=== PATIENT | male | born 1990 | race Caucasian/White ===

== ENCOUNTER 2018-10-08 02:13 | Emergency (ER) | payer OTHER ==
[~2018-10-08] VITALS: Ht 172.7 cm; Wt 86.2 kg
[2018-10-08 02:23] VITALS: BP 115/77
[2018-10-08] MEDS ORDERED: Morgan Lens TOPIC ONE (02:45)
[2018-10-08] MEDS ORDERED: NS 250 ML IVPB ONE (02:45)
[2018-10-08] MEDS ORDERED: Tetracaine 0.5% Opth 4ml Soln LEFT EYE ONE (02:45)
[2018-10-08] MEDS ORDERED: OCUFLOX5 ML RIGHT EYE (03:44)
[2018-10-08 03:49] VITALS: BP 112/73
--- NOTE | 2018-10-08 04:27 | Emergency Room Report ---
History of Present Illness General Chief Complaint: Eye Problems Source: Patient Present Illness HPI 27-year-old male presents ED for evaluation. States that he feels like there is a piece a contact lens stuck in his left eye. States he slept with his contacts last night and when he tried to take it out he felt his contact lens rip. States he was able to remove three fourths of the contact lens. Believes there is part of the lens in his eye. Pain is dull, 2 out of 10, nonradiating. Denies photophobia or blurry vision. Denies any discharge. No other aggravating relieving factors. Denies any other associated symptoms Allergies: Coded Allergies: No Known Allergies (Unverified , 10/08/18) Patient History Past Medical History: none Past Surgical History: none Pertinent Family History: none Social History: Denies: smoking, alcohol use, drug use Immunizations: UTD Reviewed Nursing Documentation: PMH: Agreed; PSxH: Agreed Nursing Documentation-PMH Past Medical History: No Stated History Review of Systems All Other Systems: negative except mentioned in HPI Physical Exam Vital Signs Date Time Temp Pulse Resp B/P (MAP) Pulse Ox O2 Delivery O2 Flow Rate FiO2 10/08/18 02:18 97.9 68 16 115/77 98 Room Air Sp02 EP Interpretation: reviewed, normal General Appearance: no apparent distress, alert, GCS 15, non-toxic Head: normocephalic, atraumatic Eyes: bilateral eye normal inspection, bilateral eye PERRL, bilateral eye EOMI , bilateral eye visual acuity ENT: normal ENT inspection Neck: normal inspection Respiratory: normal inspection Cardiovascular #1: normal inspection Gastrointestinal: normal inspection Rectal: deferred Genitourinary: no CVA tenderness Musculoskeletal: normal inspection Neurologic: alert, oriented x3, responsive, motor strength/tone normal, sensory intact, speech normal Psychiatric: normal inspection Skin: normal inspection Lymphatic: normal inspection Medical Decision Making Diagnostic Impression: Primary Impression: Sensation of foreign body in eye ER Course Hospital Course 27-year-old male presents to ED with left eye pain, feel something in his eye Differential diagnoses include: conjunctivitis, traumatic iritis, foreign body, corneal abrasion Clinical course Patient placed on stretcher. After initial history, I applied tetracaine to the affected eye. Reapplied Al lens to irrigate the eye without mass. Using Wood's lamp I examined the eyes, i could not find any piece of contact lens. I inverted eyelid and saw no evidence of foreign body. Discussed findings with patient. I explained that there could be a piece of the contact lens that is not within my view. Patient could also have a sensation of foreign body and the contact lens fragment is out. Patient will require re-evaluation by fiberglass insulation installer. We'll discharge with Ocuflox i'll provide fiberglass insulation installer referrals Diagnosis - sensation of foreign body in eye Stable and discharged to home with prescription for Ocuflox. Followup with PMD/ Optho. Return to ED if symptoms recur or worsen Last Vital Signs Date Time Temp Pulse Resp B/P (MAP) Pulse Ox O2 Delivery O2 Flow Rate FiO2 10/08/18 03:49 97.9 71 17 112/73 99 Room Air Status: improved Disposition: HOME, SELF-CARE Condition: Stable Scripts Ofloxacin (OCUFLOX) 5 Ml Drops 1 DROP RIGHT EYE QID for 7 Days, ML Prov: Homero Moses MD 10/08/18 Referrals: Titus Vanessa MD, Maziar M.D. MD NON PHYSICIAN (PCP) GIRMA DESAI Patient Instructions: Eye Foreign Body, [id number] Homero Moses MD Oct 08, 2018 04:27
== END 2018-10-08 03:49 | disposition home or self-care (01) ==
LOC: EMR 02:32
DX: H57.12 Ocular pain, left eye (principal)
CPT/HCPCS: 99282